=== PATIENT | male | born 1975 | race Caucasian/White ===

== ENCOUNTER 2024-10-26 07:30 | Outpatient (RCR) | payer OTHER, SELFPAY ==
--- NOTE | 2024-08-10 08:08 | HP.PTEVAL ---
Patient's Visit Information Visit Information Visit Information: SHARMIN DELACRUZ is a 48 year old M referred to Physical Therapy by KATHRYN Malik with a diagnosis of INTERVERTBRAL DISC DEGENERATION ,LUMBAR REGION DISCOGENIC BACK PAIN. Date of Evaluation: 08/10/24 Physical Therapist: Glen Vazquez, PT, Cert MDT, OCS Visit Plan Frequency: 2x /Week Duration: 7 WEEKS Plan: PT INTERVENTIONS AQUATIC THERAPY DLS ,POSTURAL EX'S ,LE FLEXABILITY ,LUMBAR ROM ( EXTENSION) ,AND LE STRENGTHENING Subjective Subjective: This 48 y/o male presents to physical therapy with lumbar pain . Patient has had pain in back for for 7-8 years. Cumulative effects of being in the [employer] . Patient has multiple complexity issues cervical disc replacement 2019 DJD hip ,ACL repaired and plantar fasciitis . Patient located left side . Described as ache. Patient had x-rays DDD. No recent MRI with last MRI 2-3 years. Pain muscle relaxer ,gabapentin ,lidocaine patches. Aggravating factors bending ,lifting ,sitting and walking/standing . Coughing/sneezing-. Denies paresthesia/tingling-. Bowel/bladder-. Patient affects sleeping. Patient has had prior PT in past. Patient seen PT in [facility]. Patient has had pain management injections and ablashia . Patient condition affects QOL and function . Patient goals to decrease pain. SOCAIL: VOCATION: Retired [employer] ,and currently [employer] Pain Left Back: Pain Intensity (Out of 10): 2 Pain Intensity Range: 10 Objective Objective: POSTURE: mild forward posture GAIT: reciprocal pattern NEURO: denies paresthesia/tingling ,reflexes L3-4,L4-5 L5-S1 2/3 FLEXABILITY: hamstrings min tight MMT: quads/hams/hip 4/5 ,ankle 5/5 LUMBAR ROM : flexion min loss ,extension min loss ,side glides min loss PALAPTION: unremarkable Special Tests L/S Slump test left side: Negative L/S Slump test right side: Negative L/S Left Straight Leg Raise: Negative L/S Right Straight Leg Raise: Negative Lumbar Standing: Flexion - Mechanical Response: No effect Lumbar Standing: Flexion - Symptoms During Testing: No effect Lumbar Standing: Flexion - Symptoms After Testing: No effect Lumbar Standing: Extension - Mechanical Response: No effect Lumbar Standing: Extension - Symptoms During Testing: No effect Lumbar Standing: Extension - Symptoms After Testing: No effect Lumbar Standing: Right Side Glides - Mechanical Response: No effect Lumbar Standing: Right Side [place] - Symptoms During Testing: No effect Lumbar Standing: Right Side [place] - Symptoms After Testing: No effect Lumbar Standing: Left Side [place] - Mechanical Response: No effect Lumbar Standing: Left Side [place] - Symptoms During Testing: No effect Lumbar Standing: Left Side [place] - Symptoms After Testing: No effect Balance/Special Test Scores Oswestry Low Back Score: 20 Goals Goal 1:: Patient to be I with Aquatic therapy program Goal Time Frame: 4-6 Weeks Goal 2:: Patient to improve lumbar ROM for function of recovery for lifting Goal Time Frame: 4-6 Weeks Goal 3:: Patient to demonstrate 50 % improvement with less pain and improved function with job demands Goal Time Frame: 4-6 Weeks Goal 4:: Patient to improve back oswestry score by 5 points to improve QOL and function Goal Time Frame: 4-6 Weeks Rehabilitation Potential Physical Therapy Diagnosis: This patient has lumbar pain with derangement with pain with positioning and motion testing worse with bending and lifting thus benefit from skilled PT Rehabilitation Potential: Good Anticipated Interventions Patient/Client Instruction: Educate patient on: Condition and Plan of Care For the Purpose of:: To decrease pain, To increase ROM, To increase oxygenation perfusion, To improve ability to perform ADL's, To increase tolerance to activity/condition/position, To improve ability of physical actions for home/community/work/leisure, To improve health of tissue, To decrease soft tissue restriction, To improve endurance and To improve tolerance to ADL's Therapeutic Exercise to Include: Strength training, Endurance training, Balance training, Body mechanics, Postural training, Flexibilty training, In an aquatic setting, Active ROM, Dynamic Lumbar Stabilization and [place] Exercises For the Purpose of:: To decrease pain, To increase ROM, To improve muscle performance and motor function, To improve ability to perform ADL's, To increase tolerance to activity/condition/position, To improve ability of physical actions for home/community/work/leisure, To improve health of tissue, To decrease soft tissue restriction, To increase flexibility/ROM and To improve tolerance to ADL's Text: Thank you for the opportunity to evaluate your patient. For Medicare and Medicare HMO plans, please review the plan of care and approve it. It will need to be FAXED BACK to us at [phone] for Medicare purposes. For Medicare only, by signing this I certify the plan of care. Please let me know if there are questions or concerns regarding this plan of care. Physician Signature: Date:
--- NOTE | 2024-10-26 07:53 | HP.PTDCSUM ---
Discharge Summary D/C summary: It has been my pleasure to treat SHARMIN DELACRUZ referred by Quiana Cheung NP-Mary Jane, with the diagnosis of INTERVERTBRAL DISC DEGENERATION ,LUMBAR REGION DISCOGENIC BACK PAIN for a total of 14 visit(s). Discharge Date: 10/26/24 Please see the following information for a summary of their discharge status. Subjective Subjective: Patient doing okay -patient had injection lumbar helped in 2 weeks -able to handle on own - hip injection 1 week -no DR visits for back Pain Left Back: Pain Intensity (Out of 10): 3 B hips: Pain Intensity (Out of 10): 2 R shoulder: Pain Intensity (Out of 10): 1 Overall Improvement % Improvement: 25 Objective Objective/Function: POSTURE: mild forward posture GAIT: reciprocal pattern NEURO: denies paresthesia/tingling ,reflexes L3-4,L4-5 L5-S1 2/3 FLEXABILITY: hamstrings min tight MMT: quads/hams 5/5 hip 4/5 ,ankle 5/5 LUMBAR ROM : flexion min loss ,extension min loss ,side glides min loss PALAPTION: unremarkable Goals Goal 1:: Patient to be I with Aquatic therapy program Goal Progress: Goal Met Goal 2:: Patient to improve lumbar ROM for function of recovery for lifting Goal Progress: Goal Met Goal 3:: Patient to demonstrate 50 % improvement with less pain and improved function with job demands Goal Progress: Progressing Goal 4:: Patient to improve back oswestry score by 5 points to improve QOL and function Goal Progress: Goal Met Plan Plan: D/C to Aquatic program D/C Information Discharge Comments: Aquatic program d/c sentence: If there are questions or concerns regarding this patient's physical therapy, please feel free to call me at [phone]. Thank you for the referral of this patient. Sincerely, Glen Vazquez, PT, Cert MDT, OCS Balance/Gait/Functional tests Balance/Special Test Scores Oswestry Low Back Score: 11 Improvement % Improvement: 25
== END 2024-10-26 19:00 | disposition home or self-care (01) ==
LOC: PT 07:30
PROVIDERS: PCP Nurse Practitioner Gerontology; Referring Provider Nurse Practitioner Gerontology; Visit Provider Nurse Practitioner Gerontology
DX: M54.9 Dorsalgia, unspecified (principal); G89.29 Other chronic pain
CPT/HCPCS: 97113; 97162; 97530